=== PATIENT | female | born 1945 | race Two or more races ===

== ENCOUNTER 2021-01-18 13:50 | Emergency (ER) | payer OTHER ==
[~2021-01-18] VITALS: Ht 157.5 cm; Wt 67.1 kg
[2021-01-18] MEDS ORDERED: GLIPIZIDE XL5 MG PO (14:32)
[2021-01-18] MEDS ORDERED: CAPECITABINE500 MG PO (14:33)
[2021-01-18] MEDS ORDERED: SYNTHROID100 MCG PO (14:33)
== END 2021-01-18 17:34 | disposition home or self-care (01) ==
LOC: ER 13:50
DX: M79.621 Pain in right upper arm (principal); R60.0 Localized edema; T88.1XXA Other complications following immunization, not elsewhere classified, initial encounter